=== PATIENT | female | born 1970 | race Caucasian/White ===

== ENCOUNTER 2016-08-05 02:52 | Observation (INO) | payer OTHER ==
[~2016-08-05] VITALS: Ht 160 cm; Wt 86.6 kg
[2016-08-05 03:21] LABS: HEMATOCRIT 42.9 % (36.0-46.0); MCHC 33.1 G/DL (30.0-36.0); MCV 93.7 FL (83-99); MEAN PLAT.VOLUME 9.5 uM^3 (9.5-12.4); PLATELET COUNT 378 K/uL (156-360); RBC DIS.WIDTH-CV 13.3 % (11.8-14.6); RBC DIS.WIDTH-SD 45.7 % (39-53); RED BLOOD COUNT 4.58 M/uL (3.80-5.20); WHITE BLOOD COUNT 8.9 K/uL (4.1-10.2)
[2016-08-05 03:32] LABS: CHLORIDE 109 mEq/L (99-109); SODIUM 138 mEq/L (136-147)
[2016-08-05 03:33] LABS: GLUCOSE 103 mg/dL (70-99)
[2016-08-05 03:35] LABS: ANION GAP 9 MEQ/L (2-14)
[2016-08-05 03:38] LABS: UREA NITROGEN (BUN) 16 mg/dL (9-23)
[2016-08-05 03:41] LABS: TOTAL BILIRUBIN 0.4 mg/dL (0.0-1.0)
[2016-08-05 03:42] LABS: ALKALINE PHOSPHATASE 54 IU/L (3-129); TROP-I INTERPRETATION NEGATIVE; TROPONIN-I 0.01 ng/mL (0.0-0.30)
[2016-08-05 03:42] LABS: D-DIMER ELISA 0.26 mg/L FEU (< 0.57)
[2016-08-05 03:44] LABS: DIRECT BILIRUBIN 0.1 mg/dL (0.0-0.3)
[2016-08-05 03:45] LABS: LIPASE 38 U/L (1.0-51.0)
[2016-08-05 03:48] LABS: GFR ESTIMATE (CALCULATED) > 59 mL/min/
[2016-08-05] MEDS ORDERED: CELEXA20 MG PO (05:45)
[2016-08-05 05:53] LABS: TROP-I INTERPRETATION NEGATIVE; TROPONIN-I < 0.01 ng/mL (0.0-0.30)
[2016-08-05] MEDS ORDERED: ACYCLOVIR400 MG PO (07:24)
[2016-08-05] MEDS ORDERED: EXCEDRIN MIGRA1 EAC3 PO (07:24)
[2016-08-05] MEDS ORDERED: ERGOCALCIF50000 UNIT PO (07:24)
[2016-08-05 08:29] VITALS: BP 95/51
[2016-08-05 11:10] VITALS: BP 76/48
[2016-08-05 11:40] VITALS: BP 86/50
[2016-08-05 13:26] LABS: TROP-I INTERPRETATION NEGATIVE; TROPONIN-I < 0.01 ng/mL (0.0-0.30)
[2016-08-05 16:17] VITALS: BP 92/50
[2016-08-05 18:02] LABS: TROP-I INTERPRETATION NEGATIVE; TROPONIN-I < 0.01 ng/mL (0.0-0.30)
[2016-08-05 19:53] VITALS: BP 99/59
[2016-08-06 00:41] VITALS: BP 94/51
[2016-08-06 03:23] VITALS: BP 110/58
[2016-08-06 07:26] VITALS: BP 99/54
[2016-08-06 11:44] VITALS: BP 88/52
[2016-08-06] MEDS ORDERED: FAMOTIDINE20 MG PO (11:55)
[2016-08-06 12:30] VITALS: BP 129/75
== END 2016-08-06 12:39 | disposition home or self-care (01) ==
LOC: EME 02:52 → EDOF 07:09 → 5WEST 07:09 → EDOF 07:09 → 5WEST 07:46
PROVIDERS: Emergency Medicine; Nurse Practitioner Adult Health
DX: R07.89 Other chest pain (principal); K21.9 Gastro-esophageal reflux disease without esophagitis; F41.9 Anxiety disorder, unspecified; F17.200 Nicotine dependence, unspecified, uncomplicated; D47.3 Essential (hemorrhagic) thrombocythemia
CPT/HCPCS: 71020; 74177; 76705; 80048; 80076; 83690; 84484; 85027; 85379; 93005; 99281; 99285; G0378; J2270; J2405; J7030